=== PATIENT | male | born 1940 | race Caucasian/White ===

== ENCOUNTER 2017-02-12 09:51 | Emergency (ER) | payer OTHER, MEDICARE ==
[~2017-02-12] VITALS: Ht 175.3 cm; Wt 92.5 kg
[~2017-02-12 09:51] MED LIST: Advair 250/50 Diskus IH; Benicar HCT 40/25 PO; Coumadin,Jantoven PO; Feosol PO; GENOTROPIN0.6 MG/0.2 SC; Levothroid,Synthroid PO; Percocet 5/325,Endoc PO; Pravachol PO; Provigil PO; Theragran-M,Centrum, PO; Wellbutrin XL PO
[2017-02-12 11:16] LABS: HEMATOCRIT 47.8 % (38.0-50.0); MCH 33.1 PG (29.0-34.0); MCHC 33.1 G/DL (30.0-36.0); RBC DIS.WIDTH-CV 12.5 % (11.8-14.6); RBC DIS.WIDTH-SD 46.6 % (39-53); RED BLOOD COUNT 4.78 M/uL (4.00-5.50); WHITE BLOOD COUNT 13.3 K/uL (4.1-10.2)
[2017-02-12 11:25] LABS: ADD MIUA? YES; BILIRUBIN NEGATIVE; BLOOD NEGATIVE; COLOR AMBER ((YELLOW)); GLUCOSE (STRIP) NEGATIVE; KETONES 5; LEUKOCYTES TRACE; NITRITE NEGATIVE; PROTEIN (STRIP) 30; SPECIFIC GRAVITY 1.025 (1.000-1.030); UROBILINOGEN 0.2 MG/DL (0.2-1.0)
[2017-02-12 11:35] LABS: BACTERIA NONE SEEN /HPF; EPITHELIAL CELLS NONE SEEN /HPF; MUCUS TRACE /LPF; RED BLOOD CELLS 0-5 /HPF (0-5); UCUL ADDED? NO; WHITE BLOOD CELLS 0-5 /HPF (0-5)
[2017-02-12 12:07] LABS: CHLORIDE 105 mEq/L (99-109); POTASSIUM 4.4 mEq/L (3.7-5.4); SODIUM 139 mEq/L (136-147)
[2017-02-12 12:09] LABS: GLUCOSE 98 mg/dL (70-99)
[2017-02-12 12:10] LABS: ANION GAP 11 MEQ/L (2-14)
[2017-02-12 12:11] LABS: TOTAL BILIRUBIN 0.5 mg/dL (0.0-1.0)
[2017-02-12 12:12] LABS: ALKALINE PHOSPHATASE 81 IU/L (3-129)
[2017-02-12 12:13] LABS: GFR ESTIMATE (CALCULATED) > 59 mL/min/
[2017-02-12 12:14] LABS: UREA NITROGEN (BUN) 18 mg/dL (9-23)
[2017-02-12 12:16] LABS: LIPASE 17 U/L (1.0-51.0)
[2017-02-12 12:29] LABS: MEAN PLAT.VOLUME 12.9 uM^3 (9.0-12.4); PLATELET COUNT 141 K/uL (156-360)
[2017-02-12] MEDS ORDERED: FLAGYL500 MG PO (13:24)
[2017-02-12] MEDS ORDERED: CIPRO500 MG PO (13:24)
[2017-02-12 14:18] VITALS: BP 151/80
== END 2017-02-12 14:21 | disposition home or self-care (01) ==
LOC: EME 09:51
PROVIDERS: Emergency Medicine
DX: K57.32 Diverticulitis of large intestine without perforation or abscess without bleeding (principal); K43.9 Ventral hernia without obstruction or gangrene; Z87.891 Personal history of nicotine dependence; J45.909 Unspecified asthma, uncomplicated; I10 Essential (primary) hypertension; E78.5 Hyperlipidemia, unspecified; Z79.01 Long term (current) use of anticoagulants
CPT/HCPCS: 74177; 80053; 81003; 83605; 83690; 85027; 99281; 99284